=== PATIENT | female | born 1995 | race African-American/Black ===

== ENCOUNTER 2018-10-18 03:52 | Emergency (ER) | payer BC, MEDICAID ==
[~2018-10-18] VITALS: Ht 175.3 cm; Wt 69.0 kg
[2018-10-18] MEDS ORDERED: HYDROCODONE/ACETAMINOPHEN 5/325MG TABLET PO ONE (04:45)
[2018-10-18 08:20] VITALS: BP 96/48
== END 2018-10-18 08:40 | disposition home or self-care (01) ==
LOC: ER 04:25
DX: M79.672 Pain in left foot (principal); M25.551 Pain in right hip; M25.571 Pain in right ankle and joints of right foot; V49.09XA Driver injured in collision with other motor vehicles in nontraffic accident, initial encounter; Y93.89 Activity, other specified; Y92.89 Other specified places as the place of occurrence of the external cause; Y99.8 Other external cause status
CPT/HCPCS: 73503; 73552; 73610; 73630; 81025; 99284